=== PATIENT | female | born 1980 | race Caucasian/White ===

== ENCOUNTER 2018-03-31 18:40 | Emergency (ER) | payer MEDICAID ==
--- NOTE | 2018-03-31 19:33 | ED Physician Chart ---
ED Chief Complaint/HPI - Patient Information Date Seen:: 03/31/18 Time Seen:: 19:33 Chief Complaint:: Suicidal ideation History of Present Illness:: 37 yo female was brought by police to ER due to depression, paranoid type, suicidal ideation, and fighting with family members. Patient was put on 5150 hold by police. Patient stated that her menstrual period had been heavy. Her last period was a week ago. ED Review of Systems - Review of Systems General/Constitutional: No fever Skin: No rash Head: No headache Eyes: Other (cornea burninig) ENT: No earache Neck: Neck pain Cardio Vascular: No chest pain Pulmonary: SOB GI: Nausea, No vomiting Climbing Guide: Other (Heavy menstrual bleeding) Musculoskeletal: No bone or joint pain Psychiatric: Depression, Suicidal ideation Neurological: No focal symptoms ED Past Medical History - Past Medical History Past Medical History: Other (Menorrhagia) Social History: Non Smoker, No Alcohol, No Drug Use Surgical History: other (gastric bypass, SBO, breast augmentation, ) Psychiatricy History: Depression, Other (anxiety) Family Medical History - Family Member Mother History Unknown: Yes ED Physical Exam - Physical Examination General/Constitutional: Awake Other Gen/Cons comments:: Pale skin Head: Atraumatic Eyes: PERRL Skin: No ecchymosis ENMT: Nasal exam nl Neck: No nuchal rigidity Respiratory: No Wheeze/Rhonchi/Rales Cardio Vascular: RRR, No murmur, gallop, rubs, NL S1 S2 GI: No tenderness/rebounding/guarding Extremities: normal strength in all extremities Neuro/Psych: No focal deficits ED Labs/Radiology/EKG Results - Lab Results Results: Laboratory Last Values WBC 5.9 Th/cmm (4.8-10.8) 03/31/18 20:14 RBC 4.37 Mil/cmm (3.80-5.10) 03/31/18 20:14 Hgb 10.0 gm/dL (12-16) L 03/31/18 20:14 Hct 31.1 % (41.0-60) L 03/31/18 20:14 MCV 71.3 fl (81-100) L 03/31/18 20:14 MCH 22.8 pg (27.0-31.0) L 03/31/18 20:14 MCHC Differential 32.0 pg (28.0-36.0) 03/31/18 20:14 RDW 18.8 % (11.5-20.0) 03/31/18 20:14 Plt Count 248 Th/cmm (150-400) 03/31/18 20:14 MPV 8.7 fl 03/31/18 20:14 Neutrophils % 61.7 % (40.0-80.0) 03/31/18 20:14 Lymphocytes % 29.5 % (20.0-50.0) 03/31/18 20:14 Monocytes % 7.9 % (2.0-10.0) 03/31/18 20:14 Eosinophils % 0.4 % (0.0-5.0) 03/31/18 20:14 Basophils % 0.5 % (0.0-2.0) 03/31/18 20:14 Sodium 139 mEq/L (136-145) 03/31/18 20:14 Potassium 4.6 mEq/L (3.5-5.1) 03/31/18 20:14 Chloride 108 mEq/L (98-107) H 03/31/18 20:14 Carbon Dioxide 24.9 mEq/L (21.0-31.0) 03/31/18 20:14 Anion Gap 10.7 (7.0-16.0) 03/31/18 20:14 BUN 17 mg/dL (7-25) 03/31/18 20:14 Creatinine 0.8 mg/dL (0.6-1.2) 03/31/18 20:14 Est GFR ( Amer) > 60.0 ml/min (>90) 03/31/18 20:14 Est GFR (Non-Af Amer) > 60.0 ml/min 03/31/18 20:14 BUN/Creatinine Ratio 21.3 03/31/18 20:14 Glucose 105 mg/dL (70-105) 03/31/18 20:14 Calcium 9.5 mg/dL (8.6-10.3) 03/31/18 20:14 Total Bilirubin 0.3 mg/dL (0.3-1.0) 03/31/18 20:14 AST 14 U/L (13-39) 03/31/18 20:14 ALT 11 U/L (7-52) 03/31/18 20:14 Alkaline Phosphatase 72 U/L (34-104) 03/31/18 20:14 Total Protein 7.5 gm/dL (6.0-8.3) 03/31/18 20:14 Albumin 4.5 gm/dL (3.7-5.3) 03/31/18 20:14 Globulin 3.0 gm/dL 03/31/18 20:14 Albumin/Globulin Ratio 1.5 (1.0-1.8) 03/31/18 20:14 Urine Source RANDOM 03/31/18 08:12 Urine Color YELLOW 03/31/18 08:12 Urine Clarity HAZY (CLEAR) 03/31/18 08:12 Urine pH 6.0 (4.6 - 8.0) 03/31/18 08:12 Ur Specific Spencer 1.020 (1.005-1.030) 03/31/18 08:12 Urine Protein NEGATIVE mg/dL (NEGATIVE) 03/31/18 08:12 Urine Glucose (UA) NEGATIVE mg/dL (NEGATIVE) 03/31/18 08:12 Urine Ketones NEGATIVE mg/dL (NEGATIVE) 03/31/18 08:12 Urine Blood NEGATIVE (NEGATIVE) 03/31/18 08:12 Urine Nitrate NEGATIVE (NEGATIVE) 03/31/18 08:12 Urine Bilirubin NEGATIVE (NEGATIVE) 03/31/18 08:12 Urine Urobilinogen 0.2 E.U./dL (0.2 - 1.0) 03/31/18 08:12 Ur Leukocyte Esterase TRACE (NEGATIVE) H 03/31/18 08:12 Urine RBC 0-2 /hpf (0-5) 03/31/18 08:12 Urine WBC 2-5 /hpf (0-5) 03/31/18 08:12 Ur Epithelial Cells MANY /lpf (FEW) 03/31/18 08:12 Urine Bacteria FEW /hpf (NONE SEEN) 03/31/18 08:12 Urine Test NEGATIVE 04/01/18 08:13 Urine Opiates Screen NEGATIVE (NEGATIVE) 04/01/18 08:12 Urine Methadone Screen NEGATIVE (NEGATIVE) 04/01/18 08:12 Acetaminophen < 10.0 ug/mL (10.0-30.0) L 03/31/18 20:14 Ur Barbiturates Screen NEGATIVE (NEGATIVE) 04/01/18 08:12 Ur Tricyclics Screen NEGATIVE (NEGATIVE) 04/01/18 08:12 Ur Phencyclidine Scrn NEGATIVE (NEGATIVE) 04/01/18 08:12 Amphetamines Screen POSITIVE (NEGATIVE) H 04/01/18 08:12 U Methamphetamines Scrn POSITIVE (NEGATIVE) H 04/01/18 08:12 U Benzodiazepines Scrn NEGATIVE (NEGATIVE) 04/01/18 08:12 U Cocaine Metab Screen NEGATIVE (NEGATIVE) 04/01/18 08:12 U Cannabinoids Screen NEGATIVE (NEGATIVE) 04/01/18 08:12 Ethyl Alcohol < 10 mg/dL (0-10) 03/31/18 20:14 - Radiology Results Results: CXR: No acute abnormalities ED Assessment - Assessment General Assessment: Microcytic anemia Menorrhagia Major depression disorder Suicidal ideation Assessment/Comments:: CBC, CMP, UA, urine drug screen CXR, EKG Acetaminophen level ETOH level ED Septic Shock - . Is Septic Shock (SBP<90, OR Lactate>4 mmol\L) present?: No ED Reassessment (Disposition) - Reassessment Reassessment:: Dr. Do assumed care on 04/01/18 at 07:00 Reassessment Condition:: Improved ED Discharge Plan - Patient Disposition Admit/Discharge/Transfer: PT DISCHARGED HOME Condition at Disposition: Stable Instructions: Suicidal Feelings, How to Help Yourself
[2018-03-31 20:20] LABS: % BASOPHILS 0.5 % (0.0-2.0); % EOSINOPHILS 0.4 % (0.0-5.0); % LYMPHOCYTES 29.5 % (20.0-50.0); % MONOCYTES 7.9 % (2.0-10.0); % NEUTROPHILS 61.7 % (40.0-80.0); HEMATOCRIT 31.1 % (41.0-60); LYMPHOCYTE ABSOLUTE 1.7 Th/cmm (1.5-3.0); MEAN CELL VOLUME 71.3 fl (81-100); MEAN CORPUSCULAR HEMOGLOBIN 22.8 pg (27.0-31.0); MEAN PLATELET VOLUME 8.7 fl; MONOCYTE ABSOLUTE 0.5 Th/cmm (0.3-1.0); NEUTROPHILE ABSOLUTE 3.7 Th/cmm (1.8-8.0); PLATELET COUNT 248 Th/cmm (150-400); RED BLOOD COUNT 4.37 Mil/cmm (3.80-5.10); RED CELL DISTRIBUTION WIDTH 18.8 % (11.5-20.0); WHITE BLOOD COUNT 5.9 Th/cmm (4.8-10.8)
[2018-03-31 20:38] LABS: ACETAMINOPHEN < 10.0 ug/mL (10.0-30.0); ALB/GLOB RATIO 1.5 (1.0-1.8); ALBUMIN 4.5 gm/dL (3.7-5.3); ALKALINE PHOSPHATASE 72 U/L (34-104); ANION GAP 10.7 (7.0-16.0); BILIRUBIN,TOTAL 0.3 mg/dL (0.3-1.0); BUN - UREA NITROGEN 17 mg/dL (7-25); CALCIUM SERUM 9.5 mg/dL (8.6-10.3); CARBON DIOXIDE 24.9 mEq/L (21.0-31.0); CHLORIDE 108 mEq/L (98-107); CREATININE - SERUM 0.8 mg/dL (0.6-1.2); GFR AFRICAN-AMERICAN > 60.0 ml/min (>90); GFR NON AFRICAN-AMERICAN > 60.0 ml/min; GLUCOSE 105 mg/dL (70-105); POTASSIUM SERUM 4.6 mEq/L (3.5-5.1); SGOT 14 U/L (13-39); SGPT/ALT 11 U/L (7-52); SODIUM SERUM 139 mEq/L (136-145); TOTAL PROTEIN,SERUM 7.5 gm/dL (6.0-8.3)
--- NOTE | 2018-04-01 07:57 | Diagnostic Imaging Report ---
CHEST X-RAY: AP view INDICATION: Shortness of breath COMPARISON: None FINDINGS: There is elevation of the right hemidiaphragm. There is no focal consolidation or pleural effusions The heart is normal in size. Gas distended loops of bowel of the upper abdomen are noted. The osseous structures are intact. IMPRESSION: No focal airspace consolidation identified. Gaseous distended loops of bowel of the upper abdomen. Please correlate with clinical findings. If indicated, KUB acute abdominal series may be obtained for further assessment.
[2018-04-01 08:39] LABS: URINE MICROSCOPIC INDICATED? YES; URINE SOURCE RANDOM
[2018-04-01 08:42] LABS: URINE BILIRUBIN NEGATIVE (NEGATIVE); URINE BLOOD NEGATIVE (NEGATIVE); URINE GLUCOSE (UA) NEGATIVE (NEGATIVE); URINE KETONE NEGATIVE (NEGATIVE); URINE LEUKOCYTE ESTERASE TRACE (NEGATIVE); URINE NITRATE NEGATIVE (NEGATIVE); URINE PROTEIN NEGATIVE (NEGATIVE); URINE UROBILINOGEN 0.2 E.U./dL (0.2 - 1.0)
[2018-04-01 08:45] LABS: URINE CLARITY HAZY (CLEAR); URINE COLOR YELLOW
[2018-04-01 09:00] LABS: AMPHETAMINE URINE POSITIVE (NEGATIVE); BARBITURATES URINE NEGATIVE (NEGATIVE); BENZODIAZEPINES QUAL URINE NEGATIVE (NEGATIVE); CANNABINOID THC NEGATIVE (NEGATIVE); COCAINE METABOLITE QUAL URINE NEGATIVE (NEGATIVE); METHADONE URINE NEGATIVE (NEGATIVE); METHAMPHETAMINES QUAL URINE POSITIVE (NEGATIVE); OPIATES (MORPHINE) QUAL. URINE NEGATIVE (NEGATIVE); PHENCYCLIDINE (PCP) URINE NEGATIVE (NEGATIVE); TRICYCLICS (TCA) QUAL. URINE NEGATIVE (NEGATIVE)
[2018-04-01 09:09] LABS: URINE BACTERIA FEW /hpf (NONE SEEN); URINE EPITHELIAL CELLS MANY /lpf (FEW); URINE RBC 0-2 /hpf (0-5)
--- NOTE | 2018-04-01 19:03 | History & Physical ---
ADMIT DATE: 04/01/2018 REQUESTING PHYSICIAN: Dr. Do. REASON FOR CONSULTATION: The patient being on a 5150. HISTORY OF PRESENT ILLNESS: This patient is a 37-year-old woman living with her parents. Information obtained directly interviewing the patient as well as reviewing the admission papers. The patient is reported to have had an argument with her mother when she was arguing with her son who is going to be graduating about the money that where the graduating money was going. The patient is reporting that following the argument, she stepped [place] of the [place] she was picked up by the police thinking that she is going to be jumping off of the clip. The patient is stating that she never said that she wanted to be hurting herself. The patient is stating that she has a job and she has supportive family. There is no reason for her to end her life. During the evaluation, the patient's blood work has been reviewed and is noted to be positive for urine drug screen positive for methamphetamine. The patient has been having difficult time to cope with the stress. The patient is reporting that her ex- has been making things difficult for her and the patient is stating that she has taken a restraining order. Even then, she has been having difficult time. Coping skills are noted to be poor at this time. The patient, however, is strongly denying that she has been having any thoughts of hurting herself. The patient is reporting that she has been getting in touch with her mother who is willing to come and then pick her up and keep an eye on her. PAST PSYCHIATRIC HISTORY: The patient is reported to have been seeing Dr. Gimenez in [place] and the patient is reported to have been on Zoloft because the patient lost insurance, has not been on any medication for a while. The patient is willing to attend the [facility] for further followup. LEGAL PROBLEMS: None at this time. PHYSICAL OR SEXUAL ABUSE HISTORY: None. STRENGTHS AND ASSETS: The patient is motivated. MENTAL STATUS EXAMINATION: The patient is a 37-year-old more cooperative and motivated not suicidal or homicidal. Denies any active hallucinations. Coping skills at this time are noted to be fair. The patient is stating that they were all that was written under the 5150 is wrong and she never tried to hurt herself and she does not have these kind of problems. DIAGNOSTIC IMPRESSION: 1. Major depressive disorder by history. 1b. Methamphetamine abuse. PLAN: To discharge the patient to the care of the mother and I advised her to follow up at the [facility]. The patient's 5150 is going to be discontinued. JOB# [id number]
== END 2018-04-01 19:50 | disposition home or self-care (01) ==
LOC: ER 18:40
DX: F32.9 Major depressive disorder, single episode, unspecified (principal); R45.851 Suicidal ideations; N92.0 Excessive and frequent menstruation with regular cycle; D50.9 Iron deficiency anemia, unspecified; Z88.1 Allergy status to other antibiotic agents
CPT/HCPCS: 36415-UA; 71045-TC; 80053-TC; 80307; 80320-TC; 80329-TC; 81001-TC; 81025-TC; 85025-TC; 93005